=== PATIENT | female | born 1980 | race African-American/Black ===

== ENCOUNTER 2016-08-29 17:13 | Emergency (ER) | payer MEDICAID ==
[~2016-08-29] VITALS: Ht 152.4 cm; Wt 68.7 kg
[2016-08-29 17:27] VITALS: BP 132/74
== END 2016-08-29 22:24 | disposition home or self-care (01) ==
LOC: ER 21:43
DX: S92.911A Unspecified fracture of right toe(s), initial encounter for closed fracture (principal); W22.8XXA Striking against or struck by other objects, initial encounter; Y93.89 Activity, other specified; Y92.018 Other place in single-family (private) house as the place of occurrence of the external cause
CPT/HCPCS: 73630; 99284; Z7610

== ENCOUNTER 2016-09-01 14:13 | Emergency (ER) | payer MEDICAID ==
[~2016-09-01] VITALS: Ht 152.4 cm; Wt 69.0 kg
[2016-09-01 14:51] VITALS: BP 132/79
== END 2016-09-01 15:54 | disposition home or self-care (01) ==
LOC: ER 15:18
DX: M79.671 Pain in right foot (principal)
CPT/HCPCS: 99281